=== PATIENT | male | born 1995 | race Caucasian/White ===

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

== ENCOUNTER → 2017-04-28 | Outpatient (CLI) | payer BC ==
[2017-04-28 16:13] LABS: Anisocytosis Moderate; HCT 34.4 % (39.0-53.0); Hypochromasia Marked; MCH 24.8 pg (25.0-35.0); MCHC 30.8 g/dL (31.0-37.0); MCV 80.6 fL (80.0-100.0); Mean Platelet Volume 7.3; Microcytosis Slight; Platelet Count 706 k/uL (150-450); Poikilocytosis Slight; RBC 4.27 m/uL (4.30-5.90); RDW 20.5 % (11.5-15.5); WBC 8.7 k/uL (4.0-11.0)
[2017-04-28 16:20] LABS: HGB 10.6 gm/dL (13.0-17.5)
[2017-04-28 16:27] LABS: ALT 272 U/L (21-72); AST 103 U/L (17-59); Albumin 2.9 g/dL (3.5-5.0); Alkaline Phosphatase 188 U/L (38-126); Anion Gap 10 mmol/L; Blood Urea Nitrogen 11 mg/dL (9-20); Calcium 8.9 mg/dL (8.4-10.2); Carbon Dioxide 29 mmol/L (22-30); Chloride 92 mmol/L (98-107); Glucose 114 mg/dL (74-99); Potassium 5.6 mmol/L (3.5-5.1); Sodium 131 mmol/L (137-145); Total Bilirubin 0.4 mg/dL (0.2-1.3); Total Protein 6.3 g/dL (6.3-8.2)
[2017-04-28 16:38] LABS: C Reactive Protein 164.3 mg/L (<10.0)
[2017-04-28 18:31] LABS: Erythrocyte Sedimentation Rate 90 mm/hr (0-15)
== END | disposition home or self-care (01) ==
LOC: LABWHC1 15:30
DX: K52.9 Noninfective gastroenteritis and colitis, unspecified (principal)
CPT/HCPCS: 36415; 80053; 85027; 85652; 86140

== ENCOUNTER → 2017-05-05 | Outpatient (CLI) | payer BC ==
[2017-05-05 12:18] LABS: ALT 213 U/L (21-72); AST 58 U/L (17-59); Albumin 2.5 g/dL (3.5-5.0); Alkaline Phosphatase 136 U/L (38-126); Anion Gap 7 mmol/L; Blood Urea Nitrogen 7 mg/dL (9-20); C Reactive Protein 78.4 mg/L (<10.0); Calcium 8.7 mg/dL (8.4-10.2); Carbon Dioxide 29 mmol/L (22-30); Chloride 97 mmol/L (98-107); Glucose 135 mg/dL (74-99); Potassium 4.5 mmol/L (3.5-5.1); Sodium 133 mmol/L (137-145); Total Bilirubin 0.2 mg/dL (0.2-1.3); Total Protein 5.6 g/dL (6.3-8.2)
[2017-05-05 12:23] LABS: Anisocytosis Slight; HCT 32.6 % (39.0-53.0); HGB 9.7 gm/dL (13.0-17.5); Hypochromasia Marked; MCH 24.6 pg (25.0-35.0); MCHC 29.9 g/dL (31.0-37.0); MCV 82.1 fL (80.0-100.0); Mean Platelet Volume 6.4; Microcytosis Slight; Poikilocytosis Slight; RBC 3.97 m/uL (4.30-5.90); RDW 18.5 % (11.5-15.5); WBC 13.7 k/uL (4.0-11.0)
[2017-05-05 12:27] LABS: Platelet Count 945 k/uL (150-450)
[2017-05-05 13:46] LABS: Erythrocyte Sedimentation Rate 96 mm/hr (0-15)
== END | disposition home or self-care (01) ==
LOC: LABWHC1 11:22
DX: K51.90 Ulcerative colitis, unspecified, without complications (principal)
CPT/HCPCS: 36415; 80053; 85027; 85652; 86140

== ENCOUNTER → 2017-05-12 | Outpatient (CLI) | payer BC ==
[2017-05-12 13:19] LABS: Anisocytosis Moderate; Basophils % (A) 0 %; Eosinophils % (A) 0 %; HGB 9.7 gm/dL (13.0-17.5); Hypochromasia Marked; Lymphocytes # (A) 1.3 k/uL (1.0-4.8); Lymphocytes % (A) 11 %; MCHC 30.4 g/dL (31.0-37.0); Mean Platelet Volume 6.2; Microcytosis Slight; Monocytes # (A) 0.3 k/uL (0-1.0); Monocytes % (A) 3 %; Neutrophils # (A) 10.8 k/uL (1.3-7.7); Neutrophils % (A) 86 %; Platelet Count 778 k/uL (150-450); RBC 4.04 m/uL (4.30-5.90); RDW 20.6 % (11.5-15.5); WBC 12.6 k/uL (4.0-11.0)
[2017-05-12 13:36] LABS: ALT 100 U/L (21-72); AST 30 U/L (17-59); Albumin 2.7 g/dL (3.5-5.0); Alkaline Phosphatase 111 U/L (38-126); Anion Gap 8 mmol/L; Blood Urea Nitrogen 9 mg/dL (9-20); Carbon Dioxide 27 mmol/L (22-30); Chloride 97 mmol/L (98-107); Glucose 145 mg/dL (74-99); Potassium 4.8 mmol/L (3.5-5.1); Sodium 132 mmol/L (137-145); Total Bilirubin 0.3 mg/dL (0.2-1.3)
[2017-05-12 13:47] LABS: C Reactive Protein 144.7 mg/L (<10.0)
[2017-05-12 14:45] LABS: Erythrocyte Sedimentation Rate 99 mm/hr (0-15)
== END | disposition home or self-care (01) ==
LOC: LABWHC1 12:40
DX: K51.90 Ulcerative colitis, unspecified, without complications (principal)
CPT/HCPCS: 36415; 80053; 85025; 85652; 86140

== ENCOUNTER → 2017-05-19 | Outpatient (CLI) | payer BC ==
[2017-05-19 15:20] LABS: Anisocytosis Slight; Basophils % (A) 0 %; Eosinophils % (A) 0 %; HCT 28.6 % (39.0-53.0); HGB 8.4 gm/dL (13.0-17.5); Hypochromasia Marked; Lymphocytes # (A) 0.8 k/uL (1.0-4.8); Lymphocytes % (A) 11 %; MCH 23.6 pg (25.0-35.0); MCHC 29.5 g/dL (31.0-37.0); Mean Platelet Volume 6.9; Microcytosis Slight; Monocytes # (A) 0.3 k/uL (0-1.0); Monocytes % (A) 4 %; Neutrophils # (A) 6.5 k/uL (1.3-7.7); Neutrophils % (A) 83 %; Platelet Count 678 k/uL (150-450); Poikilocytosis Slight; RBC 3.58 m/uL (4.30-5.90); RDW 18.5 % (11.5-15.5); WBC 7.8 k/uL (4.0-11.0)
[2017-05-19 15:30] LABS: ALT 111 U/L (21-72); AST 36 U/L (17-59); Albumin 2.4 g/dL (3.5-5.0); Alkaline Phosphatase 106 U/L (38-126); Anion Gap 6 mmol/L; Blood Urea Nitrogen 10 mg/dL (9-20); Calcium 8.1 mg/dL (8.4-10.2); Carbon Dioxide 29 mmol/L (22-30); Chloride 96 mmol/L (98-107); Glucose 182 mg/dL (74-99); Potassium 4.9 mmol/L (3.5-5.1); Sodium 131 mmol/L (137-145); Total Bilirubin 0.2 mg/dL (0.2-1.3); Total Protein 5.4 g/dL (6.3-8.2)
[2017-05-19 15:40] LABS: C Reactive Protein 156.7 mg/L (<10.0)
[2017-05-19 17:13] LABS: Erythrocyte Sedimentation Rate 83 mm/hr (0-15)
== END | disposition home or self-care (01) ==
LOC: LABWHC1 14:07
DX: K51.90 Ulcerative colitis, unspecified, without complications (principal)
CPT/HCPCS: 36415; 80053; 85025; 85652; 86140

== ENCOUNTER → 2017-06-03 | Outpatient (CLI) | payer BC ==
[2017-06-03 13:49] LABS: Anisocytosis Slight; HGB 7.9 gm/dL (13.0-17.5); Hypochromasia Marked; MCH 22.8 pg (25.0-35.0); MCHC 28.2 g/dL (31.0-37.0); MCV 80.9 fL (80.0-100.0); Mean Platelet Volume 6.2; Microcytosis Slight; Platelet Count 708 k/uL (150-450); Poikilocytosis Slight; RBC 3.46 m/uL (4.30-5.90); RDW 18.6 % (11.5-15.5); WBC 9.7 k/uL (4.0-11.0)
[2017-06-03 13:56] LABS: Anion Gap 6 mmol/L; Blood Urea Nitrogen 12 mg/dL (9-20); Carbon Dioxide 32 mmol/L (22-30); Chloride 96 mmol/L (98-107); Glucose 208 mg/dL (74-99); Potassium 4.5 mmol/L (3.5-5.1); Sodium 134 mmol/L (137-145)
== END | disposition home or self-care (01) ==
LOC: LABWHC1 12:45
PROVIDERS: ATTEND Internal Medicine
DX: E87.6 Hypokalemia (principal)
CPT/HCPCS: 36415; 80048; 85027

== ENCOUNTER → 2017-06-10 | Outpatient (CLI) | payer BC ==
[2017-06-10 11:52] LABS: Anisocytosis Slight; Basophils % (A) 0 %; Eosinophils % (A) 0 %; HCT 28.8 % (39.0-53.0); HGB 8.2 gm/dL (13.0-17.5); Hypochromasia Marked; Lymphocytes # (A) 1.5 k/uL (1.0-4.8); Lymphocytes % (A) 16 %; MCH 23.6 pg (25.0-35.0); MCHC 28.6 g/dL (31.0-37.0); MCV 82.3 fL (80.0-100.0); Mean Platelet Volume 6.7; Microcytosis Slight; Monocytes # (A) 0.8 k/uL (0-1.0); Monocytes % (A) 9 %; Neutrophils # (A) 7.2 k/uL (1.3-7.7); Neutrophils % (A) 74 %; Platelet Count 680 k/uL (150-450); RDW 19.1 % (11.5-15.5); WBC 9.7 k/uL (4.0-11.0)
[2017-06-10 12:17] LABS: ALT 58 U/L (21-72); AST 18 U/L (17-59); Albumin 2.7 g/dL (3.5-5.0); Alkaline Phosphatase 95 U/L (38-126); Anion Gap 10 mmol/L; Blood Urea Nitrogen 11 mg/dL (9-20); Carbon Dioxide 29 mmol/L (22-30); Chloride 97 mmol/L (98-107); Glucose 138 mg/dL (74-99); Potassium 4.5 mmol/L (3.5-5.1); Sodium 136 mmol/L (137-145); Total Bilirubin 0.4 mg/dL (0.2-1.3); Total Protein 5.9 g/dL (6.3-8.2)
[2017-06-10 13:38] LABS: Erythrocyte Sedimentation Rate 95 mm/hr (0-15)
== END | disposition home or self-care (01) ==
LOC: LABWHC1 10:58
PROVIDERS: ATTEND Physician Assistant
DX: K51.90 Ulcerative colitis, unspecified, without complications (principal)
CPT/HCPCS: 36415; 80053; 85025; 85652; 86140

== ENCOUNTER → 2017-12-08 | Outpatient (CLI) | payer BC ==
[2017-12-08 12:38] LABS: ALT 28 U/L (21-72); AST 18 U/L (17-59); Albumin 2.8 g/dL (3.5-5.0); Alkaline Phosphatase 72 U/L (38-126); Anion Gap 5 mmol/L; Basophils % (A) 1 %; Blood Urea Nitrogen 7 mg/dL (9-20); C Reactive Protein 46.2 mg/L (<10.0); Carbon Dioxide 27 mmol/L (22-30); Chloride 105 mmol/L (98-107); Eosinophils # (A) 0.2 k/uL (0-0.7); Eosinophils % (A) 3 %; Glucose 82 mg/dL (74-99); HCT 25.1 % (39.0-53.0); HGB 7.1 gm/dL (13.0-17.5); Hypochromasia Marked; Lymphocytes # (A) 2.9 k/uL (1.0-4.8); Lymphocytes % (A) 34 %; MCH 19.5 pg (25.0-35.0); MCHC 28.5 g/dL (31.0-37.0); MCV 68.3 fL (80.0-100.0); Mean Platelet Volume 5.9; Microcytosis Marked; Monocytes # (A) 0.7 k/uL (0-1.0); Monocytes % (A) 8 %; Neutrophils # (A) 4.5 k/uL (1.3-7.7); Neutrophils % (A) 52 %; Potassium 4.7 mmol/L (3.5-5.1); RBC 3.67 m/uL (4.30-5.90); RDW 15.8 % (11.5-15.5); Sodium 137 mmol/L (137-145); Total Bilirubin 0.2 mg/dL (0.2-1.3); Total Protein 6.2 g/dL (6.3-8.2); WBC 8.7 k/uL (4.0-11.0)
[2017-12-08 12:43] LABS: Platelet Count 976 k/uL (150-450)
[2017-12-08 14:56] LABS: Erythrocyte Sedimentation Rate 64 mm/hr (0-15)
[2017-12-08 18:53] LABS: Vitamin D 25 Hydroxy 41.3 ng/mL (30.0-100.0)
[2017-12-08 19:05] LABS: Iron Saturation 3.45 (15.00-50.00)
== END | disposition home or self-care (01) ==
LOC: LABWHC1 11:53
DX: K51.90 Ulcerative colitis, unspecified, without complications (principal)
CPT/HCPCS: 36415; 80053; 82306; 82728; 83540; 83550; 85025; 85652; 86140

== ENCOUNTER 2018-04-29 18:08 | Emergency (ER) | payer BC, OTHER ==
[2018-04-29] MEDS ORDERED: SODIUM CHLORIDE 0.9% 1,000 ML IV STA (19:35)
--- NOTE | 2018-04-29 19:42 | ED ---
General Adult HPI - General Chief complaint: Recheck/Abnormal Lab/Rx Stated complaint: Low Hemoglobin Time Seen by Provider: 04/29/18 19:26 Source: patient, RN notes reviewed Mode of arrival: ambulatory Limitations: no limitations - History of Present Illness Initial comments: 23-year-old male presents to the emergency department for a chief complaint of low hemoglobin. Patient states that he has a history of ulcerative colitis. Patient states he generally has bright red blood in his stools. Patient states this has been chronic and has not changed. Patient states that today he was at [facility] being tested for von Willebrand's disease as his brother has this and had blood work done. When patient got home he got a call stating that his hemoglobin was too low and he needed to go to the emergency department for a blood transfusion. Patient does admit to having a blood transfusion as well as iron transfusion in the past. Patient denies any symptoms. He denies any lightheadedness, shortness of breath, chest pain. States he is feeling his normal self. Patient has no other complaints at this time including shortness of breath, chest pain, abdominal pain, nausea or vomiting, headache, or visual changes. - Related Data Home Medications Medication Instructions Recorded Confirmed Cholecalciferol [Vitamin D3] 2,000 unit PO DAILY 05/02/16 04/29/18 Multivitamins, Thera [Multivitamin 1 tab PO DAILY 04/16/17 04/29/18 (formulary)] Adrenal Support 2 tab PO DAILY 04/29/18 04/29/18 Digestive Enzymes 2 tab PO AC-TID 04/29/18 04/29/18 Iron 20mg 20 mg PO BID@0800,1700 04/29/18 04/29/18 L.acidoph,Paracasei, B.lactis 1 cap PO DAILY 04/29/18 04/29/18 [Probiotic] Blanket-3 Fatty Acids/Fish Oil [Fish 1 cap PO DAILY 04/29/18 04/29/18 Oil 1,000 mg Softgel] Allergies Allergy/AdvReac Type Severity Reaction Status Date / Time No Known Allergies Allergy Verified 04/29/18 20:20 Review of Systems ROS Statement: Those systems with pertinent positive or pertinent negative responses have been documented in the HPI. ROS Other: All systems not noted in ROS Statement are negative. Past Medical History Past Medical History: No Reported History Additional Past Medical History / Comment(s): ulcerative colitis-dx 2015, "flaring up Feb 2016" History of Any Multi-Drug Resistant Organisms: None Reported Past Surgical History: No Surgical Hx Reported Additional Past Surgical History / Comment(s): colonoscopy Past Anesthesia/Blood Transfusion Reactions: No Reported Reaction Additional Past Anesthesia/Blood Transfusion Reaction / Comment(s): no hx general anesthesia or blood transfusion Past Psychological History: No Psychological Hx Reported Smoking Status: Never smoker Past Alcohol Use History: None Reported Past Drug Use History: None Reported - Past Family History Father Additional Family Medical History / Comment(s): ALS Mother Family Medical History: No Reported History General Exam Limitations: no limitations General appearance: alert, in no apparent distress Head exam: Present: atraumatic, normocephalic, normal inspection Eye exam: Present: normal appearance, PERRL, EOMI. Absent: scleral icterus, conjunctival injection, periorbital swelling ENT exam: Present: normal exam, mucous membranes moist Neck exam: Present: normal inspection, full ROM. Absent: tenderness, meningismus, lymphadenopathy Respiratory exam: Present: normal lung sounds bilaterally. Absent: respiratory distress, wheezes, rales, rhonchi, stridor Cardiovascular Exam: Present: regular rate, normal rhythm, normal heart sounds. Absent: systolic murmur, diastolic murmur, rubs, gallop, clicks GI/Abdominal exam: Present: soft, normal bowel sounds. Absent: distended, tenderness (no tenderness noted in the abdomen), guarding, rebound, rigid Neurological exam: Present: alert, oriented X3, CN II-XII intact Psychiatric exam: Present: normal affect, normal mood Course Vital Signs 04/29/18 04/29/18 04/29/18 18:19 20:30 20:44 Temperature 99.1 F Pulse Rate 107 H 104 H Respiratory 18 18 18 Rate Blood Pressure 98/62 105/69 O2 Sat by Pulse 100 100 Oximetry 04/29/18 04/29/18 04/29/18 21:48 21:51 22:01 Temperature 98.7 F 99.2 F 98.8 F Pulse Rate 103 H 90 97 Respiratory 20 18 16 Rate Blood Pressure 113/64 104/70 103/67 O2 Sat by Pulse 100 96 97 Oximetry 04/29/18 04/29/18 22:31 23:24 Temperature 97.8 F 98.9 F Pulse Rate 96 101 H Respiratory 16 18 Rate Blood Pressure 103/65 105/67 O2 Sat by Pulse 100 99 Oximetry Medical Decision Making - Medical Decision Making 23-year-old male with a past medical history of ulcerative colitis presents to the emergency department for chief of low hemoglobin. Patient states he has chronic bright red blood in his stool that has been evaluated by GI in the past. GI is recommending colon resection although mother is refusing this at this time. CBC does show a hemoglobin of 5.7 and a platelet count of 1142. Patient was given a transfusion. Recommended inpatient treatment and GI evaluation which patient refuses. I did adamantly recommend this but patient and mother both agree he does not want to be hospitalized. Agree to leave AMA and follow up with primary care for repeat CBC within the next 1-2 days as well as GI. Patient sees Dr Alicea. Did discuss the importance of f/u promptly and returning if he has any symptoms of anemia such as shortness of breath, chest pain, lightheadedness, dizziness. - Lab Data Result diagrams: 04/29/18 20:12 04/29/18 20:12 Lab Results 04/29/18 04/29/18 04/29/18 Range/Units 20:12 20:12 20:12 WBC 13.2 H (3.8-10.6) k/uL RBC 3.18 L (4.30-5.90) m/uL Hgb 5.7 L* (13.0-17.5) gm/dL Hct 21.2 L (39.0-53.0) % MCV 66.4 L (80.0-100.0) fL MCH 17.9 L (25.0-35.0) pg MCHC 27.0 L (31.0-37.0) g/dL RDW 18.2 H (11.5-15.5) % Plt Count 1142 H* (150-450) k/uL Neutrophils % 70 % Lymphocytes % 19 % Monocytes % 5 % Eosinophils % 3 % Basophils % 1 % Neutrophils # 9.2 H (1.3-7.7) k/uL Lymphocytes # 2.5 (1.0-4.8) k/uL Monocytes # 0.7 (0-1.0) k/uL Eosinophils # 0.4 (0-0.7) k/uL Basophils # 0.1 (0-0.2) k/uL Manual Slide Review Performed Polychromasia Present Hypochromasia Marked Poikilocytosis (manual Present Anisocytosis Slight Microcytosis Marked PT 10.7 (9.0-12.0) sec INR 1.0 (<1.2) APTT 30.0 (22.0-30.0) sec Sodium 136 L (137-145) mmol/L Potassium 4.1 (3.5-5.1) mmol/L Chloride 103 (98-107) mmol/L Carbon Dioxide 26 (22-30) mmol/L Anion Gap 7 mmol/L BUN 10 (9-20) mg/dL Creatinine 0.73 (0.66-1.25) mg/dL Est GFR (CKD-EPI)AfAm >90 (>60 ml/min/1.73 sqM) Est GFR (CKD-EPI)NonAf >90 (>60 ml/min/1.73 sqM) Glucose 119 H (74-99) mg/dL Calcium 8.4 (8.4-10.2) mg/dL Total Bilirubin <0.1 L (0.2-1.3) mg/dL AST 11 L (17-59) U/L ALT 22 (21-72) U/L Alkaline Phosphatase 81 (38-126) U/L Total Protein 5.6 L (6.3-8.2) g/dL Albumin 2.4 L (3.5-5.0) g/dL Amylase 35 (30-110) U/L Lipase 36 (23-300) U/L Urine Color Urine Appearance (Clear) Urine pH (5.0-8.0) Ur Specific [place] (1.001-1.035) Urine Protein (Negative) Urine Glucose (UA) (Negative) Urine Ketones (Negative) Urine Blood (Negative) Urine Nitrite (Negative) Urine Bilirubin (Negative) Urine Urobilinogen (<2.0) mg/dL Ur Leukocyte Esterase (Negative) Blood Type Blood Type Recheck Antibody Screen Crossmatch Spec Expiration Date 04/29/18 04/29/18 Range/Units 20:12 20:44 WBC (3.8-10.6) k/uL RBC (4.30-5.90) m/uL Hgb (13.0-17.5) gm/dL Hct (39.0-53.0) % MCV (80.0-100.0) fL MCH (25.0-35.0) pg MCHC (31.0-37.0) g/dL RDW (11.5-15.5) % Plt Count (150-450) k/uL Neutrophils % % Lymphocytes % % Monocytes % % Eosinophils % % Basophils % % Neutrophils # (1.3-7.7) k/uL Lymphocytes # (1.0-4.8) k/uL Monocytes # (0-1.0) k/uL Eosinophils # (0-0.7) k/uL Basophils # (0-0.2) k/uL Manual Slide Review Polychromasia Hypochromasia Poikilocytosis (manual Anisocytosis Microcytosis PT (9.0-12.0) sec INR (<1.2) APTT (22.0-30.0) sec Sodium (137-145) mmol/L Potassium (3.5-5.1) mmol/L Chloride (98-107) mmol/L Carbon Dioxide (22-30) mmol/L Anion Gap mmol/L BUN (9-20) mg/dL Creatinine (0.66-1.25) mg/dL Est GFR (CKD-EPI)AfAm (>60 ml/min/1.73 sqM) Est GFR (CKD-EPI)NonAf (>60 ml/min/1.73 sqM) Glucose (74-99) mg/dL Calcium (8.4-10.2) mg/dL Total Bilirubin (0.2-1.3) mg/dL AST (17-59) U/L ALT (21-72) U/L Alkaline Phosphatase (38-126) U/L Total Protein (6.3-8.2) g/dL Albumin (3.5-5.0) g/dL Amylase (30-110) U/L Lipase (23-300) U/L Urine Color Yellow Urine Appearance Clear (Clear) Urine pH 6.0 (5.0-8.0) Ur Specific [place] 1.019 (1.001-1.035) Urine Protein Trace H (Negative) Urine Glucose (UA) Negative (Negative) Urine Ketones Negative (Negative) Urine Blood Negative (Negative) Urine Nitrite Negative (Negative) Urine Bilirubin Negative (Negative) Urine Urobilinogen <2.0 (<2.0) mg/dL Ur Leukocyte Esterase Negative (Negative) Blood Type A Negative Blood Type Recheck No Antibody Screen NEGATIVE Crossmatch See Detail Spec Expiration Date 05/02/20182311 Disposition Clinical Impression: Anemia, Rectal bleeding Disposition: Left Against Medical Advice Condition: Good Instructions: Anemia (ED) Additional Instructions: Please follow up with GI for rectal bleeding. Follow up with primary care for repeat hemoglobin. Return if he has any symptoms such as shortness of breath, chest pain, dizziness, weakness, lightheadedness or any other concerns. Is patient prescribed a controlled substance at d/c from ED?: No Referrals: Irene Fine MD [Primary Care Provider] - 1-2 days Renaldo Alicea MD [STAFF PHYSICIAN] - 1-2 days Time of Disposition: 23:13
[2018-04-29 20:30] LABS: Anisocytosis Slight; Basophils # (A) 0.1 k/uL (0-0.2); Basophils % (A) 1 %; Eosinophils # (A) 0.4 k/uL (0-0.7); Eosinophils % (A) 3 %; HCT 21.2 % (39.0-53.0); Hypochromasia Marked; Lymphocytes # (A) 2.5 k/uL (1.0-4.8); Lymphocytes % (A) 19 %; MCH 17.9 pg (25.0-35.0); MCV 66.4 fL (80.0-100.0); Mean Platelet Volume 5.1; Microcytosis Marked; Monocytes # (A) 0.7 k/uL (0-1.0); Monocytes % (A) 5 %; Neutrophils # (A) 9.2 k/uL (1.3-7.7); Neutrophils % (A) 70 %; RBC 3.18 m/uL (4.30-5.90); RDW 18.2 % (11.5-15.5); WBC 13.2 k/uL (3.8-10.6)
[2018-04-29 20:45] LABS: Prothrombin Time 10.7 sec (9.0-12.0)
[2018-04-29 20:46] LABS: ALT 22 U/L (21-72); AST 11 U/L (17-59); Albumin 2.4 g/dL (3.5-5.0); Alkaline Phosphatase 81 U/L (38-126); Amylase 35 U/L (30-110); Anion Gap 7 mmol/L; Blood Urea Nitrogen 10 mg/dL (9-20); Calcium 8.4 mg/dL (8.4-10.2); Carbon Dioxide 26 mmol/L (22-30); Chloride 103 mmol/L (98-107); Glucose 119 mg/dL (74-99); Lipase 36 U/L (23-300); Potassium 4.1 mmol/L (3.5-5.1); Sodium 136 mmol/L (137-145); Total Bilirubin <0.1 mg/dL (0.2-1.3); Total Protein 5.6 g/dL (6.3-8.2)
[2018-04-29 20:56] LABS: HGB 5.7 gm/dL (13.0-17.5)
[2018-04-29 21:01] LABS: Appearance,Urine Clear (Clear); Bilirubin,Urine Negative (Negative); Blood,Urine Negative (Negative); Color,Urine Yellow; Glucose,Urine (UA) Negative (Negative); Ketones,Urine Negative (Negative); Leukocyte Esterase,Urine Negative (Negative); Nitrite,Urine Negative (Negative); Protein,Urine Trace (Negative); Specific Gravity,Urine 1.019 (1.001-1.035); Urobilinogen,Urine <2.0 mg/dL (<2.0)
[2018-04-29 21:15] LABS: Platelet Count 1142 k/uL (150-450); Poikilocytosis (M) Present; Polychromasia Present
[2018-04-29 23:26] VITALS: BP 105/67; PULSE 101; RESP 18; TEMP 98.9
== END 2018-04-29 23:24 | disposition left against medical advice (07) ==
LOC: EC 18:08
DX: D64.9 Anemia, unspecified (principal); K62.5 Hemorrhage of anus and rectum; Z87.19 Personal history of other diseases of the digestive system; Z98.890 Other specified postprocedural states; Z79.899 Other long term (current) drug therapy
CPT/HCPCS: 36415; 86900; 86901; 80053; 82150; 83690; 85025; 85610; 85730; 86850; 86920; 81003; 99284; 96360; P9016

== ENCOUNTER → 2018-04-30 | Outpatient (CLI) | payer BC, OTHER ==
[2018-04-30 15:06] LABS: Anisocytosis Slight; Basophils # (A) 0.1 k/uL (0-0.2); Basophils % (A) 1 %; Eosinophils # (A) 0.4 k/uL (0-0.7); Eosinophils % (A) 4 %; HCT 26.3 % (39.0-53.0); HGB 7.1 gm/dL (13.0-17.5); Hypochromasia Marked; Lymphocytes # (A) 2.5 k/uL (1.0-4.8); Lymphocytes % (A) 22 %; MCH 18.8 pg (25.0-35.0); MCHC 26.9 g/dL (31.0-37.0); MCV 69.8 fL (80.0-100.0); Mean Platelet Volume 5.4; Microcytosis Marked; Monocytes # (A) 1.1 k/uL (0-1.0); Monocytes % (A) 10 %; Neutrophils # (A) 6.8 k/uL (1.3-7.7); Neutrophils % (A) 62 %; Poikilocytosis Moderate; RBC 3.77 m/uL (4.30-5.90); RDW 19.4 % (11.5-15.5)
[2018-04-30 15:46] LABS: Poikilocytosis (M) Present; Polychromasia Present
[2018-05-01 15:22] LABS: Platelet Count 1151 k/uL (150-450)
== END ==
LOC: LABWHC1 13:16
DX: D64.9 Anemia, unspecified (principal)
CPT/HCPCS: 36415; 85025

== ENCOUNTER 2018-06-21 13:03 | Emergency (ER) | payer BC, OTHER ==
[2018-06-21 13:08] VITALS: TEMP 98.2
[2018-06-21] MEDS ORDERED: MORPHINE SULFATE 2 MG/ML SYRINGE IVP STA ×2 (13:33→15:52)
[2018-06-21 13:49] LABS: ALT 24 U/L (21-72); AST 20 U/L (17-59); Albumin 3.9 g/dL (3.5-5.0); Alkaline Phosphatase 71 U/L (38-126); Anion Gap 11 mmol/L; Blood Urea Nitrogen 11 mg/dL (9-20); Calcium 9.7 mg/dL (8.4-10.2); Carbon Dioxide 24 mmol/L (22-30); Chloride 105 mmol/L (98-107); Glucose 106 mg/dL (74-99); Lipase 309 U/L (23-300); Potassium 4.2 mmol/L (3.5-5.1); Sodium 140 mmol/L (137-145); Total Bilirubin 0.4 mg/dL (0.2-1.3); Total Protein 7.7 g/dL (6.3-8.2)
[2018-06-21 14:07] LABS: Anisocytosis Slight; Basophils # (A) 0.1 k/uL (0-0.2); Basophils % (A) 1 %; Eosinophils # (A) 0.2 k/uL (0-0.7); Eosinophils % (A) 2 %; HCT 36.5 % (39.0-53.0); Hypochromasia Moderate; Lymphocytes # (A) 3.4 k/uL (1.0-4.8); Lymphocytes % (A) 34 %; MCHC 31.7 g/dL (31.0-37.0); Microcytosis Slight; Monocytes # (A) 0.5 k/uL (0-1.0); Monocytes % (A) 5 %; Neutrophils # (A) 5.4 k/uL (1.3-7.7); Neutrophils % (A) 55 %; Platelet Count 983 k/uL (150-450); Poikilocytosis Slight; RBC 4.46 m/uL (4.30-5.90); RDW 18.1 % (11.5-15.5); WBC 9.8 k/uL (3.8-10.6)
[2018-06-21 14:09] LABS: HGB 11.6 gm/dL (13.0-17.5)
--- NOTE | 2018-06-21 14:12 | ED ---
Abdominal Pain HPI - General Chief Complaint: Abdominal Pain Stated Complaint: ABDOMINAL PAIN, POST OP 05/26/18 Source: patient Mode of arrival: ambulatory Limitations: no limitations - History of Present Illness Initial Comments: 23-year-old male with past medical history of ulcerative colitis with recent bowel resection with ostomy placement performed 05/26/2018 with discharge June 16 from [facility]. Mother states there is multiple complications while at [facility] status post surgery. She states patient had blood clot of the liver, was placed on Lovenox. She states patient then had internal bleeding. Patient was discharged on Lovenox however a few days ago he had passed blood, and the medication was discontinued until outpatient surgical follow-up with Dr. Suresh. Patient states pain has been manageable since discharge however today patient has been experiencing severe abdominal pain mostly near site of osteomy-bag and left lower quadrant. Patient denies any melena or hematochezia of the stool. He states prior to today he had normal appetite, today he states he has decreased appetite. Patient has had nausea as well as vomiting.Remaining ROS (-), Patient denies any recent fever, chills, shortness of breath, chest pain, back pain, numbness or tingling, dysuria or hematuria, headaches or visual changes, or any other complaints. - Related Data Home Medications Medication Instructions Recorded Confirmed Cholecalciferol [Vitamin D3] 2,000 unit PO DAILY 05/02/16 04/29/18 Multivitamins, Thera [Multivitamin 1 tab PO DAILY 04/16/17 04/29/18 (formulary)] Adrenal Support 2 tab PO DAILY 04/29/18 04/29/18 Digestive Enzymes 2 tab PO AC-TID 04/29/18 04/29/18 Iron 20mg 20 mg PO BID@0800,1700 04/29/18 04/29/18 L.acidoph,Paracasei, B.lactis 1 cap PO DAILY 04/29/18 04/29/18 [Probiotic] [place]-3 Fatty Acids/Fish Oil [Fish 1 cap PO DAILY 04/29/18 04/29/18 Oil 1,000 mg Softgel] Allergies Allergy/AdvReac Type Severity Reaction Status Date / Time Penicillins Allergy Rash/Hives Verified 06/21/18 13:08 Review of Systems ROS Statement: Those systems with pertinent positive or pertinent negative responses have been documented in the HPI. ROS Other: All systems not noted in ROS Statement are negative. Past Medical History Past Medical History: No Reported History Additional Past Medical History / Comment(s): ulcerative colitis-dx 2015, "flaring up Feb 2016" History of Any Multi-Drug Resistant Organisms: None Reported Past Surgical History: Bowel Resection Additional Past Surgical History / Comment(s): colonoscopy, total colectomy Past Anesthesia/Blood Transfusion Reactions: No Reported Reaction Additional Past Anesthesia/Blood Transfusion Reaction / Comment(s): no hx general anesthesia or blood transfusion Past Psychological History: No Psychological Hx Reported Smoking Status: Never smoker Past Alcohol Use History: None Reported Past Drug Use History: None Reported - Past Family History Father Additional Family Medical History / Comment(s): ALS Mother Family Medical History: No Reported History General Exam - General Exam Comments Initial Comments: General: The patient is awake and alert, appears uncomfortable. Eye: Pupils are equal, round and reactive to light, extra-ocular movements are intact. No nystagmus. There is normal conjunctiva bilaterally. No signs of icterus. Ears, nose, mouth and throat: There are moist mucous membranes and no oral lesions. Neck: The neck is supple, there is no tenderness or JVD. Cardiovascular: There is a regular rate and rhythm. No murmur, rub or gallop is appreciated. Respiratory: Lungs are clear to auscultation, respirations are non-labored, breath sounds are equal. No wheezes, stridor, rales, or rhonchi. Gastrointestinal: No noted diaphoresis, jaundice, pallor, protecting postures or squirming. Symmetrical pigmentation of abdomen without signs of inflammation. Some protecting posturing. Umbilicus mildline, inverted without swelling. No dilated veins. Abdomen contour scaphoid-ostomy bag in place, no noted abdominal distention. No visible masses. No peristalsis, aortic pulsations, or ventral hernia. Bowel sounds audible in all 4 quadrants, unremarkable. Pt tender to palpation near site of ostomy bag and the LLQ, some mild guarding. No rigidity. Liver edge, not palpable. Spleen edge, right and left kidney not palpable. Superior bladder margin non-tender. Stoma in not inflammed no surrounding erythema. Special Testing: Negative [place], [place], [place], Jeanine, cutaneous hyperesthesia.Negative Heel Jar test.Digital rectal exam deferred. Negative hadley turners or cullens sign Musculoskeletal: Normal ROM, no tenderness. Strength 5/5. Sensation intact. Pulses equal bilaterally 2+. Neurological: A&O x 3. CN II-XII intact, There are no obvious motor or sensory deficits. Coordination appears grossly intact. Speech is normal. Skin: Skin is warm and dry and no rashes or lesions are noted. Psychiatric: Cooperative, appropriate mood & affect, normal judgment. Limitations: no limitations Course Vital Signs 06/21/18 06/21/18 13:04 16:05 Temperature 98.2 F 98.2 F Pulse Rate 99 82 Respiratory 18 16 Rate Blood Pressure 119/73 103/76 O2 Sat by Pulse 99 100 Oximetry - Reevaluation(s) Reevaluation #1: I contacted patient surgeon home extension agent staff. Speaking via personal phone with Dr. Dionte Lindsay. We discussed patient's history as well as presenting symptoms and physical examination findings. I discussed laboratory studies as well as CT imaging. Physician contacted patient primary surgeon Dr. Angulo, relaying my contact information awaiting return phone call. Upon reevaluation patient had improvement of abdominal pain from 8 out of 10-4 out of 10. Patient denies any current nausea. Patient requesting food. Repeat abdominal exam benign. 06/21/18 Reevaluation #2: No additional episodes of emesis following ingestion of food. Patient states pain continues to trend downward. Patient requesting discharge. I did discuss the case in detail with Dr. Angulo as well as reviewed CT imaging studies with attending provider Dr. Marquez we agree with radiologist read. Angulo after discussing patient's presenting illness, physical examination findings, laboratory studies as well as imaging results recommended discharge with outpatient follow-up as scheduled. Mother is agreeable to this plan discharge do not want transfer at this time although this was offered to both patient and mother 06/21/18 Medical Decision Making - Medical Decision Making CT revealed no acute findings. Serial abdominal exam performed. No significant findings concerning for acute abdomen. Pt symptoms continue to improve. Pt states he did eat tacos yesterday and is concerned they did not settle well. After discussing the case at length with two physicians at [facility] patient primary surgeon Dr. Angulo---they recommended discharge with strict return parameters as f/u as scheduled. I discussed case with attending provider Dr. Marquez who is agreeable with plan and discharge. He reviewed patient laboratory studies as well as all imaging studies. Pt is comfortable with discharge with strict return parameters. I questions at this time. Patient discharged appearing well no vomiting nausea improvement of abdominal pain. CT copy obtained and sent with patient home. - Lab Data Result diagrams: 06/21/18 13:25 06/21/18 13:25 Lab Results 06/21/18 06/21/18 06/21/18 Range/Units 13:25 13:25 13:25 WBC 9.8 (3.8-10.6) k/uL RBC 4.46 (4.30-5.90) m/uL Hgb 11.6 L D (13.0-17.5) gm/dL Hct 36.5 L (39.0-53.0) % MCV 82.0 D (80.0-100.0) fL MCH 26.0 (25.0-35.0) pg MCHC 31.7 (31.0-37.0) g/dL RDW 18.1 H (11.5-15.5) % Plt Count 983 H (150-450) k/uL Neutrophils % 55 % Lymphocytes % 34 % Monocytes % 5 % Eosinophils % 2 % Basophils % 1 % Neutrophils # 5.4 (1.3-7.7) k/uL Lymphocytes # 3.4 (1.0-4.8) k/uL Monocytes # 0.5 (0-1.0) k/uL Eosinophils # 0.2 (0-0.7) k/uL Basophils # 0.1 (0-0.2) k/uL Hypochromasia Moderate Poikilocytosis Slight Anisocytosis Slight Microcytosis Slight PT 10.4 (9.0-12.0) sec INR 1.0 (<1.2) APTT 27.8 (22.0-30.0) sec Sodium 140 (137-145) mmol/L Potassium 4.2 (3.5-5.1) mmol/L Chloride 105 (98-107) mmol/L Carbon Dioxide 24 (22-30) mmol/L Anion Gap 11 mmol/L BUN 11 (9-20) mg/dL Creatinine 0.57 L (0.66-1.25) mg/dL Est GFR (CKD-EPI)AfAm >90 (>60 ml/min/1.73 sqM) Est GFR (CKD-EPI)NonAf >90 (>60 ml/min/1.73 sqM) Glucose 106 H (74-99) mg/dL Plasma Lactic Acid Isak (0.7-2.0) mmol/L Calcium 9.7 (8.4-10.2) mg/dL Total Bilirubin 0.4 (0.2-1.3) mg/dL AST 20 (17-59) U/L ALT 24 (21-72) U/L Alkaline Phosphatase 71 (38-126) U/L Total Protein 7.7 (6.3-8.2) g/dL Albumin 3.9 (3.5-5.0) g/dL Lipase 309 H (23-300) U/L Urine Color Urine Appearance (Clear) Urine pH (5.0-8.0) Ur Specific [place] (1.001-1.035) Urine Protein (Negative) Urine Glucose (UA) (Negative) Urine Ketones (Negative) Urine Blood (Negative) Urine Nitrite (Negative) Urine Bilirubin (Negative) Urine Urobilinogen (<2.0) mg/dL Ur Leukocyte Esterase (Negative) 06/21/18 06/21/18 Range/Units 13:25 14:45 WBC (3.8-10.6) k/uL RBC (4.30-5.90) m/uL Hgb (13.0-17.5) gm/dL Hct (39.0-53.0) % MCV (80.0-100.0) fL MCH (25.0-35.0) pg MCHC (31.0-37.0) g/dL RDW (11.5-15.5) % Plt Count (150-450) k/uL Neutrophils % % Lymphocytes % % Monocytes % % Eosinophils % % Basophils % % Neutrophils # (1.3-7.7) k/uL Lymphocytes # (1.0-4.8) k/uL Monocytes # (0-1.0) k/uL Eosinophils # (0-0.7) k/uL Basophils # (0-0.2) k/uL Hypochromasia Poikilocytosis Anisocytosis Microcytosis PT (9.0-12.0) sec INR (<1.2) APTT (22.0-30.0) sec Sodium (137-145) mmol/L Potassium (3.5-5.1) mmol/L Chloride (98-107) mmol/L Carbon Dioxide (22-30) mmol/L Anion Gap mmol/L BUN (9-20) mg/dL Creatinine (0.66-1.25) mg/dL Est GFR (CKD-EPI)AfAm (>60 ml/min/1.73 sqM) Est GFR (CKD-EPI)NonAf (>60 ml/min/1.73 sqM) Glucose (74-99) mg/dL Plasma Lactic Acid Isak 1.6 (0.7-2.0) mmol/L Calcium (8.4-10.2) mg/dL Total Bilirubin (0.2-1.3) mg/dL AST (17-59) U/L ALT (21-72) U/L Alkaline Phosphatase (38-126) U/L Total Protein (6.3-8.2) g/dL Albumin (3.5-5.0) g/dL Lipase (23-300) U/L Urine Color Yellow Urine Appearance Clear (Clear) Urine pH 5.5 (5.0-8.0) Ur Specific [place] >1.050 H (1.001-1.035) Urine Protein Negative (Negative) Urine Glucose (UA) Negative (Negative) Urine Ketones Negative (Negative) Urine Blood Negative (Negative) Urine Nitrite Negative (Negative) Urine Bilirubin Negative (Negative) Urine Urobilinogen <2.0 (<2.0) mg/dL Ur Leukocyte Esterase Negative (Negative) Disposition Clinical Impression: Abdominal pain Disposition: HOME SELF-CARE Condition: Good Instructions (If sedation given, give patient instructions): Abdominal Pain (ED ) Additional Instructions: Please use medication as discussed. Please follow-up with family doctor in the next 2 days, please follow-up with surgeon as scheduled. Please return to emergency room immediately if the symptoms increase or worsen or for any other concerns. Is patient prescribed a controlled substance at d/c from ED?: No Referrals: Irene Fine MD [Primary Care Provider] - 1-2 days Time of Disposition: 15:53
--- NOTE | 2018-06-21 14:25 | CT ---
EXAMINATION TYPE: CT abdomen pelvis w con DATE OF EXAM: 06/21/2018 COMPARISON: None HISTORY: Abdominal pain, Post op 05/26/2018...total colectomy, history of ulcerative colitis CT DLP: 463.5 mGycm Automated exposure control for dose reduction was used. TECHNIQUE: Helical acquisition of images was performed from the lung bases through the pelvis. CONTRAST: Performed without Oral Contrast and with IV Contrast, patient injected with 100 ml mL of Isovue 300. FINDINGS: Lung bases are clear. There is no pleural effusion. Heart size is normal. There is no pericardial eff usion. Liver spleen pancreas gallbladder appear normal. Bile ducts are not dilated. There is no adrenal mass . There is 4 mm calculus upper pole left kidney. There is 2 mm calculus lower pole left kidney. There is no hydronephrosis. Ureters are not dilated. There is no retroperitoneal adenopathy. There is ileostomy in the right mid abdomen. There is small a mount of fluid in the right paracolic gutter. There is no evidence of a bowel obstruction. There is d istended ileum that measures up to 3.5 cm. There is subtotal colectomy with residual rectum and dista l sigmoid colon. The bladder distends smoothly. There is no free fluid in the pelvis. There is no errol e air. The lumbar spine is intact. I see no bony destructive process. IMPRESSION: Subtotal colectomy. Ileostomy. Distended small bowel consistent with mild ileus. No free air. Minimal fluid on the right side. No drainable fluid collection. Nonobstructing left renal calculi.
[2018-06-21 14:26] LABS: Partial Thromboplastin Time 27.8 sec (22.0-30.0); Prothrombin Time 10.4 sec (9.0-12.0)
[2018-06-21 15:20] LABS: Appearance,Urine Clear (Clear); Bilirubin,Urine Negative (Negative); Blood,Urine Negative (Negative); Color,Urine Yellow; Glucose,Urine (UA) Negative (Negative); Ketones,Urine Negative (Negative); Leukocyte Esterase,Urine Negative (Negative); Nitrite,Urine Negative (Negative); PH, Urine 5.5 (5.0-8.0); Protein,Urine Negative (Negative); Urobilinogen,Urine <2.0 mg/dL (<2.0)
[2018-06-21 15:30] LABS: Specific Gravity,Urine >1.050 (1.001-1.035)
[2018-06-21 16:07] VITALS: BP 103/76; PULSE 82; RESP 16
== END 2018-06-21 16:09 | disposition home or self-care (01) ==
LOC: EC 13:03
DX: R10.32 Left lower quadrant pain (principal); R11.2 Nausea with vomiting, unspecified; Z79.899 Other long term (current) drug therapy; Z88.0 Allergy status to penicillin; Z93.2 Ileostomy status
CPT/HCPCS: 36415; 80053; 83605; 83690; 85025; 85610; 85730; 81003; 74177; 99284; 96374; 96376; J2270; Q9967

== ENCOUNTER → 2019-08-10 | Outpatient (CLI) | payer OTHER ==
[2019-08-10 09:27] LABS: Basophils % (A) 1 %; Eosinophils # (A) 0.2 k/uL (0-0.7); Eosinophils % (A) 2 %; HCT 44.1 % (39.0-53.0); HGB 14.1 gm/dL (13.0-17.5); Lymphocytes # (A) 2.1 k/uL (1.0-4.8); Lymphocytes % (A) 25 %; MCH 27.9 pg (25.0-35.0); MCHC 31.9 g/dL (31.0-37.0); MCV 87.4 fL (80.0-100.0); Monocytes # (A) 0.4 k/uL (0-1.0); Monocytes % (A) 5 %; Neutrophils # (A) 5.3 k/uL (1.3-7.7); Neutrophils % (A) 65 %; Platelet Count 342 k/uL (150-450); RBC 5.05 m/uL (4.30-5.90); WBC 8.1 k/uL (3.8-10.6)
[2019-08-10 09:30] LABS: D-Dimer 0.32 mg/L FEU (<0.60); Prothrombin Time 10.6 sec (9.0-12.0)
[2019-08-10 11:10] LABS: Erythrocyte Sedimentation Rate 4 mm/hr (0-15)
[2019-08-10 15:53] LABS: ALT 31 U/L (10-49); AST 21 U/L (14-35); Albumin/Globulin Ratio 1.68 (1.60-3.17); Alkaline Phosphatase 95 U/L (41-126); BUN/Creat Ratio 18.75 Ratio (12.00-20.00); C Reactive Protein <0.4 mg/dL (0.0-0.8); Carbon Dioxide 25.9 mmol/L (21.6-31.8); Chloride 104 mmol/L (96-109); Globulin 2.8 g/dL (1.6-3.3); Glucose 94 mg/dL (70-110); Non-African American GFR(CKD) 126.8 (60.0-200.0); Potassium 4.6 mmol/L (3.5-5.5); Sodium 141 mmol/L (135-145); Total Bilirubin 0.6 mg/dL (0.3-1.2); Total Protein 7.5 g/dL (6.2-8.2)
[2019-08-10 17:26] LABS: Cardiolipin Ab IgG Interp Positive (NEGATIVE); Cardiolipin IgA Antibody 13.5 U/mL
[2019-08-10 17:27] LABS: Cardiolipin Ab IgM Interp NEGATIVE (NEGATIVE); Cardiolipin IgM Antibody 0.8 U/mL
[2019-08-11 11:45] LABS: APTT 51 Sec(s) (<43); APTT 1:1 Mix 36 Sec(s) (<43); DRVVT 1:1 Mix 43 Sec(s) (<44); Dilute Russell Viper Venom 51 Sec(s) (<44)
== END | disposition home or self-care (01) ==
LOC: LABWHC1 08:45
PROVIDERS: ATTEND Internal Medicine
DX: D68.61 Antiphospholipid syndrome (principal); K51.019 Ulcerative (chronic) pancolitis with unspecified complications; Z88.0 Allergy status to penicillin
CPT/HCPCS: 36415; 80048; 80076; 85025; 85379; 85610; 85613; 85652; 85730; 85732; 86140; 86146; 86147